=== PATIENT | female | born 1985 | race Caucasian/White ===

== ENCOUNTER 2023-11-11 13:08 | Emergency (ER) | payer MEDICAID ==
[~2023-11-11] VITALS: Ht 165.1 cm; Wt 56.7 kg
[2023-11-11 13:44] VITALS: BP 122/73; PULSE 91; RESP 18; TEMP 99.3; O2SAT 100
[2023-11-11] MEDS: IBUPROFEN 600 MG TAB PO ONE (14:48)
[2023-11-11 16:58] VITALS: BP 132/60; PULSE 88; RESP 18; TEMP 98.3; O2SAT 98
== END 2023-11-11 16:57 | disposition home or self-care (01) ==
LOC: MED 13:08
DX: M25.551 Pain in right hip (principal); Z88.0 Allergy status to penicillin; Z59.00 Homelessness unspecified
CPT/HCPCS: 73502; 99283

== ENCOUNTER 2023-11-12 01:35 | Inpatient (IN) | payer MEDICAID ==
[~2023-11-12] VITALS: Ht 165.1 cm; Wt 59.0 kg
[2023-11-12 01:41] VITALS: BP 140/80; PULSE 104; RESP 30; TEMP 100.4; O2SAT 98
[2023-11-12 02:00] VITALS: PULSE 87; RESP 19; O2SAT 98
[2023-11-12] MEDS ORDERED: VANCOMYCIN 1,000 MG VIAL ONE (02:16)
[2023-11-12] MEDS: NACL 0.9% 1,000 ML IV SCH ×2 (02:18→03:24)
[2023-11-12] MEDS: MORPHINE SULFATE 4 MG/ML SYR IVP ONE (02:22)
[2023-11-12] MEDS: ONDANSETRON 4 MG/2 ML VIAL IVP ONE (02:23)
[2023-11-12] MEDS: VANCOMYCIN 1,000 MG in DEXTROSE 5% 250 ML IV ONE (02:24)
[2023-11-12 02:27] LABS: BASOPHILS # (AUTO) 0.1 K/uL (0.00-0.22); BASOPHILS % (AUTO) 0.3 % (0.0-2.0); EOSINOPHILS % (AUTO) 0.1 % (0.0-4.0); HEMATOCRIT 36.8 % (36-48); HEMOGLOBIN 12.1 g/dL (12.0-16.0); LYMPHOCYTES % (AUTO) 6.5 % (20.5-51.1); MEAN CORPUSCULAR HEMOGLOBIN 26 pg (27-31); MEAN CORPUSCULAR HGB CONC 33 g/dL (33-37); MEAN CORPUSCULAR VOLUME 77.7 fL (80-94); MONOCYTES % (AUTO) 6.3 % (1.7-9.3); NEUTROPHILS # (AUTO) 13.7 K/uL (1.8-7.7); NEUTROPHILS % (AUTO) 86.8 % (42.2-75.2); PLATELET COUNT (AUTO) 359 K/uL (140-450); RED BLOOD CELL COUNT(AUTO) 4.74 MIL/uL (4.20-5.40); RED CELL DISTRIBUTION WIDTH 15.6 % (11.6-13.7); WHITE BLOOD COUNT (AUTO) 15.8 K/uL (4.8-10.8)
[2023-11-12] MEDS: NACL 0.9% 1,000 ML IV ONE (02:29)
[2023-11-12] MEDS: LEVOFLOXACIN 500 MG/D5W PREMIX 100 ML IV ONE (02:33)
[2023-11-12 02:39] LABS: ANION GAP 13.9 (8-16); CALCIUM 8.7 mg/dL (8.5-10.1); CARBON DIOXIDE 28.1 mmol/L (21-32); CREATININE 0.8 mg/dL (0.6-1.3)
[2023-11-12 02:48] LABS: LACTIC ACID 0.9 mmol/L (0.4-2.0)
[2023-11-12] MEDS ORDERED: guaiFENesin DM 200/20 MG-10 ML 10 ML UDC PO PRN (03:05)
[2023-11-12] MEDS ORDERED: DOCUSATE SODIUM 100 MG GELCAP PO PRN (03:05)
[2023-11-12] MEDS: POTASSIUM CHLORIDE 10 MEQ TABER PO PRN (03:24)
[2023-11-12 05:22] LABS: APPEARANCE,URINE CLEAR (CLEAR); BILIRUBIN,URINE NEGATIVE (NEGATIVE); BLOOD, URINE NEGATIVE (NEGATIVE); COLOR,URINE YELLOW (YELLOW); LEUKOCYTE ESTERASE ,URINE 1+ (NEGATIVE); NITRITE, URINE NEGATIVE (NEGATIVE); PROTEIN,URINE TRACE (NEGATIVE); UGLUCOSE NEGATIVE (NEGATIVE)
[2023-11-12 05:25] LABS: BACTERIA,URINE >30 (MANY) /HPF (None Seen); MUCUS,URINE 1+ /LPF (None Seen); RBC,URINE 0-5 /HPF (0-5); SQUAMOUS EPITHELIAL CELL,UR 0-3 (FEW) /LPF (0-3 (FEW))
[2023-11-12] MEDS: PANTOPRAZOLE 40 MG TABEC PO SCH (09:00)
[2023-11-12] MEDS: KETOROLAC 30 MG/ML VIAL IVP PRN (10:15)
[2023-11-12 11:07] VITALS: PULSE 94; RESP 20; O2SAT 99
[2023-11-12 12:00] VITALS: BP 130/65; PULSE 92; RESP 18; TEMP 98.6; O2SAT 99
[2023-11-12] MEDS ORDERED: ALGINATE ROPE MC PRN (12:45)
[2023-11-12] MEDS: ALGINATE ROPE MC SCH (13:05)
[2023-11-12 16:00] VITALS: BP 144/89; PULSE 83; PULSE 87; RESP 18; TEMP 97.2; O2SAT 99
[2023-11-12] MEDS: ONDANSETRON 4 MG/2 ML VIAL IM/IVP PRN (17:53)
[2023-11-12 20:00] VITALS: BP 108/63; PULSE 87; PULSE 92; RESP 19; TEMP 98; O2SAT 98
[2023-11-13] VITALS: BP 106/64; PULSE 83; PULSE 93; RESP 19; TEMP 97.7; O2SAT 100
[2023-11-13] MEDS: HYDROcodone/APAP 7.5/325 MG 1 TAB PO PRN (02:11)
[2023-11-13 04:00] VITALS: BP 118/65; PULSE 90; PULSE 91; RESP 19; TEMP 98.9; O2SAT 99
[2023-11-13 05:25] LABS: BASOPHILS % (AUTO) 0.1 % (0.0-2.0); EOSINOPHILS # (AUTO) 0.1 K/uL (0-0.4); EOSINOPHILS % (AUTO) 0.5 % (0.0-4.0); HEMATOCRIT 28.7 % (36-48); HEMOGLOBIN 9.6 g/dL (12.0-16.0); LYMPHOCYTES # (AUTO) 1.4 K/uL (2.5-16.5); LYMPHOCYTES % (AUTO) 13.7 % (20.5-51.1); MEAN CORPUSCULAR HEMOGLOBIN 26 pg (27-31); MEAN CORPUSCULAR HGB CONC 34 g/dL (33-37); MEAN CORPUSCULAR VOLUME 76.7 fL (80-94); MONOCYTES % (AUTO) 9.7 % (1.7-9.3); NEUTROPHILS # (AUTO) 7.7 K/uL (1.8-7.7); PLATELET COUNT (AUTO) 254 K/uL (140-450); RED BLOOD CELL COUNT(AUTO) 3.74 MIL/uL (4.20-5.40); RED CELL DISTRIBUTION WIDTH 15.3 % (11.6-13.7); WHITE BLOOD COUNT (AUTO) 10.1 K/uL (4.8-10.8)
[2023-11-13 05:54] LABS: ALBUMIN 2.3 g/dL (3.4-5.0); CALCIUM 7.9 mg/dL (8.5-10.1); CARBON DIOXIDE 26.9 mmol/L (21-32); CREATININE 0.6 mg/dL (0.6-1.3); POTASSIUM 3.9 mmol/L (3.5-5.1); TOTAL BILIRUBIN 0.3 mg/dL (0.0-1.0); TOTAL PROTEIN, SERUM 5.9 g/dL (6.4-8.2)
[2023-11-13 07:52] VITALS: PULSE 78; RESP 20; O2SAT 99
[2023-11-13 08:00] VITALS: BP 112/72; PULSE 73; RESP 18; TEMP 96.8; O2SAT 99
[2023-11-13] MEDS: MORPHINE SULFATE 2 MG/ML SYR IVP PRN (09:13)
[2023-11-13 16:00] VITALS: BP 126/77; PULSE 89; RESP 18; TEMP 97.2; O2SAT 100
[2023-11-13 20:00] VITALS: BP 116/72; PULSE 89; RESP 18; TEMP 98.1; O2SAT 100; O2SAT 97
[2023-11-14 01:00] LABS: BARBITURATE, URINE NEGATIVE ng/ml (NEG <=200)
[2023-11-14 01:01] LABS: AMPHETAMINE, URINE POSITIVE ng/ml (NEG <=1000); BENZODIAZEPINE, URINE NEGATIVE ng/mL (NEG <=200); CANNABINOID, URINE NEGATIVE ng/mL (NEG <=50); COCAINE, URINE NEGATIVE ng/mL (NEG <=300); OPIATE, URINE POSITIVE ng/mL (NEG <=2000); PHENCYCLIDINE SCREEN,URINE NEGATIVE ng/mL (NEG <=25)
[2023-11-14] MEDS: ZOLPIDEM 5 MG TAB PO PRN (01:28)
[2023-11-14 05:43] LABS: BASOPHILS % (AUTO) 0.1 % (0.0-2.0); EOSINOPHILS % (AUTO) 0.4 % (0.0-4.0); HEMATOCRIT 30.3 % (36-48); LYMPHOCYTES # (AUTO) 1.7 K/uL (2.5-16.5); LYMPHOCYTES % (AUTO) 15.6 % (20.5-51.1); MEAN CORPUSCULAR HEMOGLOBIN 25 pg (27-31); MEAN CORPUSCULAR HGB CONC 33 g/dL (33-37); MEAN CORPUSCULAR VOLUME 76.7 fL (80-94); MONOCYTES # (AUTO) 1.1 K/uL (0.8-1.0); MONOCYTES % (AUTO) 9.8 % (1.7-9.3); NEUTROPHILS # (AUTO) 8.1 K/uL (1.8-7.7); NEUTROPHILS % (AUTO) 74.1 % (42.2-75.2); PLATELET COUNT (AUTO) 272 K/uL (140-450); RED BLOOD CELL COUNT(AUTO) 3.95 MIL/uL (4.20-5.40); RED CELL DISTRIBUTION WIDTH 15.4 % (11.6-13.7)
[2023-11-14 06:00] LABS: ALBUMIN 2.3 g/dL (3.4-5.0); ANION GAP 8.1 (8-16); CALCIUM 8.1 mg/dL (8.5-10.1); CARBON DIOXIDE 30.6 mmol/L (21-32); CREATININE 0.7 mg/dL (0.6-1.3); POTASSIUM 3.7 mmol/L (3.5-5.1); TOTAL BILIRUBIN 0.4 mg/dL (0.0-1.0); TOTAL PROTEIN, SERUM 6.4 g/dL (6.4-8.2)
[2023-11-14 08:00] VITALS: BP 135/79; PULSE 96; RESP 19; TEMP 99; O2SAT 95
[2023-11-14 08:05] VITALS: PULSE 68; RESP 19; O2SAT 99
[2023-11-14] MEDS: LEVOFLOXACIN 500 MG/D5W PREMIX 100 ML IV SCH (13:35)
[2023-11-14 16:00] VITALS: BP 111/69; PULSE 100; RESP 18; TEMP 98.9; O2SAT 94
[2023-11-14 20:00] VITALS: BP 140/72; PULSE 92; RESP 18; TEMP 97.8; O2SAT 97
[2023-11-15 04:00] VITALS: BP 120/74; PULSE 88; RESP 18; TEMP 97.4; O2SAT 97
[2023-11-15 05:17] LABS: BASOPHILS % (AUTO) 0.2 % (0.0-2.0); EOSINOPHILS # (AUTO) 0.1 K/uL (0-0.4); EOSINOPHILS % (AUTO) 0.4 % (0.0-4.0); HEMATOCRIT 29.7 % (36-48); HEMOGLOBIN 9.7 g/dL (12.0-16.0); LYMPHOCYTES # (AUTO) 1.4 K/uL (2.5-16.5); LYMPHOCYTES % (AUTO) 10.5 % (20.5-51.1); MEAN CORPUSCULAR HEMOGLOBIN 25 pg (27-31); MEAN CORPUSCULAR HGB CONC 33 g/dL (33-37); MEAN CORPUSCULAR VOLUME 76.2 fL (80-94); MONOCYTES # (AUTO) 1.2 K/uL (0.8-1.0); MONOCYTES % (AUTO) 8.9 % (1.7-9.3); NEUTROPHILS # (AUTO) 10.6 K/uL (1.8-7.7); PLATELET COUNT (AUTO) 283 K/uL (140-450); RED BLOOD CELL COUNT(AUTO) 3.91 MIL/uL (4.20-5.40); RED CELL DISTRIBUTION WIDTH 15.6 % (11.6-13.7); WHITE BLOOD COUNT (AUTO) 13.3 K/uL (4.8-10.8)
[2023-11-15 05:50] LABS: ALBUMIN 2.1 g/dL (3.4-5.0); ANION GAP 12.3 (8-16); CALCIUM 8.3 mg/dL (8.5-10.1); CARBON DIOXIDE 27.5 mmol/L (21-32); CREATININE 0.5 mg/dL (0.6-1.3); POTASSIUM 3.8 mmol/L (3.5-5.1); TOTAL BILIRUBIN 0.4 mg/dL (0.0-1.0); TOTAL PROTEIN, SERUM 6.5 g/dL (6.4-8.2)
[2023-11-15 08:00] VITALS: PULSE 58; RESP 18; O2SAT 99
[2023-11-15] MEDS ORDERED: LEVO-481 PO (10:34)
[2023-11-15] MEDS ORDERED: IBUP-2213 PO (10:34)
[2023-11-15] MEDS: ACETAMINOPHEN 325 MG TAB PO PRN (13:18)
[2023-11-15 16:00] VITALS: BP 119/74; PULSE 59; RESP 18; TEMP 98.4; O2SAT 99
[2023-11-15] MEDS ORDERED: DEXTROSE 50% 50 ML SYR IVP PRN (19:05)
[2023-11-15] MEDS ORDERED: INSULIN LISPRO SLIDING SCALE 100 UNITS/ML VIAL SUBQ PRN (19:05)
[2023-11-15 20:00] VITALS: BP 120/74; PULSE 91; RESP 18; TEMP 98.6; O2SAT 99
[2023-11-15] MEDS: BLOOD GLUCOSE MONITORING 1 DEV DEV FS SCH (20:54)
[2023-11-15] MEDS: HYDROcodone/APAP 7.5/325 MG 1 TAB PO PRN (21:48)
[2023-11-16 05:32] LABS: BASOPHILS % (AUTO) 0.1 % (0.0-2.0); EOSINOPHILS # (AUTO) 0.1 K/uL (0-0.4); EOSINOPHILS % (AUTO) 0.8 % (0.0-4.0); HEMATOCRIT 31.7 % (36-48); HEMOGLOBIN 10.5 g/dL (12.0-16.0); LYMPHOCYTES # (AUTO) 1.5 K/uL (2.5-16.5); LYMPHOCYTES % (AUTO) 9.6 % (20.5-51.1); MEAN CORPUSCULAR HEMOGLOBIN 25 pg (27-31); MEAN CORPUSCULAR HGB CONC 33 g/dL (33-37); MONOCYTES % (AUTO) 6.5 % (1.7-9.3); NEUTROPHILS # (AUTO) 12.7 K/uL (1.8-7.7); PLATELET COUNT (AUTO) 352 K/uL (140-450); RED BLOOD CELL COUNT(AUTO) 4.18 MIL/uL (4.20-5.40); RED CELL DISTRIBUTION WIDTH 15.9 % (11.6-13.7); WHITE BLOOD COUNT (AUTO) 15.3 K/uL (4.8-10.8)
[2023-11-16 06:01] LABS: ALBUMIN 2.3 g/dL (3.4-5.0); ANION GAP 13.3 (8-16); CALCIUM 8.7 mg/dL (8.5-10.1); CARBON DIOXIDE 27.5 mmol/L (21-32); CREATININE 0.7 mg/dL (0.6-1.3); POTASSIUM 3.8 mmol/L (3.5-5.1); TOTAL BILIRUBIN 0.3 mg/dL (0.0-1.0); TOTAL PROTEIN, SERUM 7.4 g/dL (6.4-8.2)
[2023-11-16 08:00] VITALS: BP 98/60; PULSE 72; PULSE 79; RESP 18; TEMP 97; O2SAT 99
[2023-11-16 11:34] VITALS: BP 98/60; PULSE 72; RESP 18; TEMP 97
[2023-11-16 16:00] VITALS: BP 126/77; PULSE 89; RESP 18; TEMP 98.5; O2SAT 98
[2023-11-16 20:00] VITALS: BP 109/65; PULSE 87; RESP 18; TEMP 96.9; O2SAT 97; O2SAT 99
== END 2023-11-17 | disposition left against medical advice (07) | DRG 383 ==
LOC: MED 01:35 → MTU 03:07
PROVIDERS: ADMIT Student in an Organized Health Care Education/Training Program; ATTEND Student in an Organized Health Care Education/Training Program
DX: L03.115 Cellulitis of right lower limb (principal); E44.0 Moderate protein-calorie malnutrition; S91.001A Unspecified open wound, right ankle, initial encounter; E11.9 Type 2 diabetes mellitus without complications; F17.210 Nicotine dependence, cigarettes, uncomplicated; X58.XXXA Exposure to other specified factors, initial encounter; F15.10 Other stimulant abuse, uncomplicated; Z53.29 Procedure and treatment not carried out because of patient's decision for other reasons; Z88.0 Allergy status to penicillin; Z88.2 Allergy status to sulfonamides; Z88.1 Allergy status to other antibiotic agents; Y93.89 Activity, other specified; Y92.89 Other specified places as the place of occurrence of the external cause; Y99.8 Other external cause status; Z91.199 Patient's noncompliance with other medical treatment and regimen due to unspecified reason; Z68.21 Body mass index [BMI] 21.0-21.9, adult
CPT/HCPCS: 36415; 71045; 80048; 80053; 80305; 81001; 82948; 83605; 83880; 84484; 85025; 87040; 87081; 87086; 93005; 93971; 96365; 96375; 97110; 97112; 97163-GP; 97530; 99285; J1885; J1956; J2270; J2405; J3370; Q0092